=== PATIENT | female | born 1990 | race African-American/Black ===

== ENCOUNTER 2018-07-06 19:49 | Emergency (ER) | payer OTHER ==
[2018-07-06 19:57] VITALS: BP 128/87; PULSE 79; TEMP 98.6; BMI 37.1
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
== END 2018-07-06 20:10 | disposition home or self-care (01) ==
LOC: FER 19:49
DX: V44.5XXA Car driver injured in collision with heavy transport vehicle or bus in traffic accident, initial encounter (principal); Y93.89 Activity, other specified; Y92.410 Unspecified street and highway as the place of occurrence of the external cause
CPT/HCPCS: 99281-25